=== PATIENT | male | born 1990 | race Caucasian/White ===

== ENCOUNTER 2019-03-23 20:06 | Emergency (ER) | payer OTHER ==
[~2019-03-23] VITALS: Ht 175.3 cm; Wt 81.7 kg
[~2019-03-23 20:06] MED LIST: ALBU90OI; ALBU90OI INH; AZIT250 PO; HYDACE5 PO; IBUP600 PO; PRED20 PO; Zofran8 MG PO
[2019-03-23] MEDS ORDERED: TYLENOL AND MOTRIN (20:33)
[2019-03-23] MEDS ORDERED: Norco 5-325 Ta1 EACH PO (21:15)
[2019-03-23] MEDS ORDERED: IBUP800 PO (21:15)
== END 2019-03-23 22:04 | disposition home or self-care (01) ==
LOC: ER 20:06
DX: K08.89 Other specified disorders of teeth and supporting structures (principal); J45.909 Unspecified asthma, uncomplicated; Z88.8 Allergy status to other drugs, medicaments and biological substances
CPT/HCPCS: 99282; A9270-GY